=== PATIENT | male | born 1935 | race Caucasian/White ===

== ENCOUNTER → 2020-01-26 13:14 | Outpatient (BNVA) | payer MEDICARE, BC, SELFPAY | PROVIDERS: Family Provider Family Medicine; PCP Family Medicine; Visit Provider Urology | DX: N42.1 Congestion and hemorrhage of prostate (principal); N39.9 Disorder of urinary system, unspecified; N52.9 Male erectile dysfunction, unspecified | CPT/HCPCS: 81001 ==

== ENCOUNTER 2020-07-26 08:57 | Outpatient (CLI) | payer MEDICARE, BC, SELFPAY ==
[2020-07-26] MEDS: iohexol 300 mg/mL 50 mL Btl PO (10:00)
--- NOTE | 2020-07-26 10:30 | CT_ITS ---
WS: [id number] CT CHEST, ABDOMEN AND PELVIS WITH CONTRAST HISTORY: MALIGNANT NEOPLASM OF RECTUM TECHNIQUE: Contiguous 5 mm axial imaging performed through the chest, abdomen and pelvis with IV cont rast, oral contrast has been provided. Coronal and sagittal reformats chest. Coronal and sagittal ref ormats through the abdomen and pelvis. All CT scans at [facility] use at least one of the se dose optimization techniques: automated exposure control; mA and/or kV adjustment per patient size (includes targeted exams where dose is matched to clinical indication); or iterative reconstruction. CONTRAST: Visipaque 320; 95 mL IV. DLP: 2383.96 mGycm COMPARISON: 09/04/2018, 12/08/[address]: No interval change in a subcentimeter pulmonary nodules since 09/04/2018. There is been no increase in size or number. There are also benign granulomata. No metastatic disease. Subsegmental li near areas of scarring in the RIGHT middle, RIGHT lower lobe and LEFT lower lobes. No pleural effusio n. Mediastinal and hilar lymph nodes are stable. Some of these lymph nodes are calcified. Heart size is normal. No pericardial effusion. Mild atherosclerosis aorta. Normal size pulmonary artery. Abdomen CT: No metastatic disease to the liver. No hepatic nodules. Gallbladder and RIGHT adrenal gla nd are negative. Normal size RIGHT kidney. There are several small cysts from the upper pole with the largest measuring 5 mm. Nonobstructing central calcification measures 8 mm. The LEFT adrenal gland m ay have been surgically resection. The LEFT kidney has been resected. Pancreas is atrophic with no ma ss. Normal size spleen with granulomata. Small hiatal hernia. No metastatic disease within the abdome n. There is no free fluid or adenopathy. Mild atherosclerosis aorta. Heavy calcification at the origi n of the RIGHT renal artery. Prior appendectomy. Extensive sigmoid diverticulosis without acute diverticulitis. Postsurgical stinson es present at the rectum. No recurrent mass or perirectal adenopathy. There is presacral soft tissue thickening which is probably post therapy related. Pelvic CT: Minimally distended urinary bladder. Prostate gland is enlarged and lobulated but similar appearance to 2015. Small bilateral hydroceles. No osseous metastatic disease is identified. CT/CT chest abd pel w con* IMPRESSION: 1. No evidence for metastatic disease to the chest, abdomen or pelvis. 2. 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 3. Rectal anastomotic site is negative for recurrent mass. No adenopathy. 4. Mild presacral soft tissue thickening is probably post therapeutic. 5. Sigmoid diverticulosis. 6. Prior appendectomy. 7. Emphysema. 8. Nonobstructing central RIGHT renal calcification measures 8 mm. Patient is at risk for renal obstruction due to the position of the stone. 9. Heterogeneous mildly enlarged prostate gland.
[2020-07-26] MEDS: iodixanol 320 mg/mL 100mL Btl IV (10:53)
== END 2020-07-26 08:58 | disposition home or self-care (01) ==
LOC: RADWPI 09:03
PROVIDERS: Family Provider Family Medicine; PCP Family Medicine; Visit Provider Colon & Rectal Surgery
DX: C20 Malignant neoplasm of rectum (principal); K57.30 Diverticulosis of large intestine without perforation or abscess without bleeding; J43.9 Emphysema, unspecified; N20.0 Calculus of kidney; N40.0 Benign prostatic hyperplasia without lower urinary tract symptoms
CPT/HCPCS: 71260; 74177; Q9967

== ENCOUNTER → 2022-02-16 08:11 | Outpatient (BNVA) | payer MEDICARE, BC, SELFPAY | PROVIDERS: Family Provider Family Medicine; PCP Family Medicine; Referring Provider Dermatology; Visit Provider Surgery | DX: R10.32 Left lower quadrant pain (principal) | CPT/HCPCS: 99204 ==

== ENCOUNTER 2022-04-10 13:11 | Outpatient (CLI) | payer MEDICARE, BC, SELFPAY ==
--- NOTE | 2022-04-10 14:15 | US_ITS ---
WS: [id number] ULTRASOUND SOFT TISSUES LEFT inguinal region. HISTORY: Left Groin Pain COMPARISON: None available. TECHNIQUE: 2-D and color Doppler imaging is submitted. Ultrasound is directed to the LEFT inguinal region and area of pain. The iliac vein and artery are id entified and normal. No peristalsing loops of GI tract are noted. There is some increased fat along t he inguinal canal which may be related to an inguinal hernia containing fat only. No peristalsing loo ps of bowel. The bladder is negative. US/US soft tissue/extremity [id number] IMPRESSION: 1. No LEFT inguinal hernia or adenopathy identified. There is no protrusion of GI track into the inguinal canal. 2. Increased fat in the LEFT inguinal canal. This could represent omental fat.
== END 2022-04-10 13:12 | disposition home or self-care (01) ==
LOC: RAD 13:12
PROVIDERS: Family Provider Family Medicine; PCP Family Medicine; Visit Provider Surgery
DX: R10.30 Lower abdominal pain, unspecified (principal)
CPT/HCPCS: 76882

== ENCOUNTER → 2022-04-13 08:46 | Outpatient (BNVA) | payer MEDICARE, BC, SELFPAY | PROVIDERS: Family Provider Family Medicine; PCP Family Medicine; Visit Provider Surgery | DX: R10.32 Left lower quadrant pain (principal) | CPT/HCPCS: 99213 ==

== ENCOUNTER 2022-11-28 03:16 | Observation (INO) | payer MEDICARE, BC, SELFPAY ==
[2022-11-28] VITALS (11 sets, daily range): BP systolic 123–188; BP diastolic 70–119; PULSE 66–87; RESP 14–22; TEMP 36.3; O2SAT 91–96; BMI 26.9
--- NOTE | 2022-11-28 03:18 | ED_ITS ---
HPI - Chest Pain General: Chief Complaint: ER Hold Stated Complaint: Chest Pain Time Seen by Provider: 11/28/22 03:17 History of Present Illness: Mr. Nolan is an 87-year-old gentleman with history of diabetes, hyperlipidemia presenting to the emergency department due to chest pain. He reports onset of symptoms at approximately 7 PM on 11/27/2022. Symptom onset was at rest and he describes severe point pain in the middle of his chest with occasional radiation to right arm. No other associated symptoms. Denies frequent history of similar. Intensity of symptoms is currently m oderate. Course has been slightly variable. No other specific changes in health, exacerbating, or alleviating factors identified. Onset (ago): hour(s) Timing of current episode: constant Prior episodes: No Onset: during rest Pain location: substernal Pain radiation: right shoulder and right scapula Severity: moderate Quality: aching and heaviness Relieving factors: nothing Exacerbating factors: nothing Associated symptoms: Reports no associated symptoms Review of Systems General: Reports: 10 or more systems reviewed and unremarkable except in HPI and below PFSH ED PFSH: Medical History (Updated 11/28/22 @ 13:34 by Pedro Curiel MD) Erectile dysfunction History of chronic kidney disease History of hypertension History of non-insulin dependent type 2 diabetes mellitus Prostatic hemorrhage Surgical History History of colonoscopy History of nephrectomy, left History of tonsillectomy S/P appendectomy S/P colon resection S/P knee surgery S/P shoulder surgery S/P transurethral resection of prostate Status post left inguinal hernia repair Family History Mother , 80 No problems noted. Father , 65 CAD (coronary artery disease) Social History Smoking and tobacco status: never smoked Alcohol intake: never Marital status: Current occupational status: retired History of recent travel: Yes (freddie) Physical Exam Const: COMMON NORMALS: alert GENERAL APPEARANCE: cooperative and well developed HENMT: COMMON NORMALS: normocephalic and atraumatic HEAD & SCALP: normocephalic and atraumatic Eye: COMMON NORMALS: conjunctivae normal CONJUNCTIVA: Yes conjunctivae normal SCLERA: sclerae normal Neck/C-Spine: COMMON NORMALS: supple GENERAL: Yes trachea midline Resp: COMMON NORMALS: clear to auscultation bilaterally EFFORT & INSPECTION: Yes able to speak in complete sentences AUSCULTATION: clear to auscultation bilaterally Cardio: COMMON NORMALS: regular rate and regular rhythm RATE: regular rate RHYTHM: regular rhythm GI: COMMON NORMALS: Soft to palpation PALPATION: Yes Soft to palpation and No Tenderness to palpation present (GI) Extremity: GENERAL: Yes normal exam except as noted and No edema Neuro: COMMON NORMALS: moves all extremities SENSORIUM/ORIENTATION: Yes alert and No Orientation impaired Psych: COMMON NORMALS: mental status grossly normal and Normal thought process present THOUGHT PROCESS: Normal thought process present Course Vital Signs: Vital signs: Vital Signs Temperature 97.4 F L 11/28/22 03:22 Pulse Rate 87 11/28/22 09:19 Respiratory Rate 16 11/28/22 06:45 Blood Pressure 128/72 11/28/22 09:19 Pulse Oximetry 95 11/28/22 06:45 Oxygen Delivery In thod 11/28/22 06:55 MDM - Chest Pain Medical Decision Making 87-year-old gentleman presenting with chest pain. Exam as above. EKG shows sinus rhythm with nonspecific ST segment abnormalities, PVC present on initial. Labs notable for leukocytosis and hemoconcentration. Metabolic panel with mild evidence of dehydration, creatinine is elevated mildly. Transaminitis presence of uncertain etiology. Negative range 2-hour delta troponin. Chest x-ray with possible atelectasis, no lobar consolidation or pneumothorax. Patient given aspirin and nitroglycerin as well as Maalox. Most likely etiology of patient symptoms is chest pain, he is not low risk by heart score. The results of ED evaluation were discussed with the patient including possible disposition options. I discussed risk stratification by heart score and estimated risk of major adverse cardiac events. The patient wishes to proceed with in-hospital management. I discussed plan for admission due to requirement for level of care not available if discharged to prevent significant worsening/deterioration. Patient agreeable with plan. Discussed with hospitalist service who was agreeable to admit patient. Medical Records I reviewed the patient's medical records. Lab Data I reviewed the patient's lab results. 11/28/22 03:24 11/28/22 03:24 Radiology Impressions Chest X-Ray 11/28/22 03:23 IMPRESSION: Streaky lower lung opacities; favor atelectasis over pneumonia. Laboratory Results WBC 12.6 10^3/uL (4.0-10.0) H 11/28/22 03:24 RBC 5.62 10^6/uL (4.1-5.3) H 11/28/22 03:24 Hgb 16.8 g/dL (11.7-16.6) H 11/28/22 03:24 Hct 50.9 % (42.0-52.0) 11/28/22 03:24 MCV 90.6 fl (80-94) 11/28/22 03:24 MCH 29.9 pg (28.0-34.0) 11/28/22 03:24 MCHC 33.0 g/dL (30.0-36.0) 11/28/22 03:24 RDW 12.2 % (12.1-15.1) 11/28/22 03:24 Plt Count 253 10^3/cmm (130-400) 11/28/22 03:24 MPV 12.6 fL (7.4-10.4) H 11/28/22 03:24 Neut % (Auto) 63.9 % 11/28/22 03:24 Lymph % (Auto) 24.7 % 11/28/22 03:24 [place] % (Auto) 9.5 % 11/28/22 03:24 Eos % (Auto) 1.2 % 11/28/22 03:24 Baso % (Auto) 0.5 % 11/28/22 03:24 Neut # (Auto) 8.08 10^3/uL (1.8-7.7) H 11/28/22 03:24 Lymph # (Auto) 3.1 10^3/uL (0.8-4.8) 11/28/22 03:24 [place] # (Auto) 1.2 10^3/uL (0.2-0.9) H 11/28/22 03:24 Eos # (Auto) 0.2 10^3/uL (0.0-0.8) 11/28/22 03:24 Baso # (Auto) 0.1 10^3/uL (0.0-0.1) 11/28/22 03:24 Nucleated RBC % (auto) 0 % 11/28/22 03:24 Nucleated RBCs # 0.0 /100WBC 11/28/22 03:24 PT 13.30 SECONDS (12.1-14.9) 11/28/22 03:24 INR 0.98 (0.8-1.2) 11/28/22 03:24 APTT 28.2 SECONDS (23.9-36.7) 11/28/22 03:24 Sodium 132 mmol/L (136-145) L 11/28/22 03:24 Potassium 4.4 mmol/L (3.5-5.1) 11/28/22 03:24 Chloride 98 mmol/L (98-107) 11/28/22 03:24 Carbon Dioxide 22 mmol/L (22-29) 11/28/22 03:24 Anion Gap 16.4 (5-19) 11/28/22 03:24 BUN 27 mg/dL (8-23) H 11/28/22 03:24 Creatinine 1.3 mg/dL (0.7-1.2) H 11/28/22 03:24 GFR Calculation Not Reportable 11/28/22 03:24 Glucose 225 mg/dL (65-115) H 11/28/22 03:24 Calculated Osmolality 286 mOsm/kg (285-295) 11/28/22 03:24 Calcium 9.5 mg/dL (8.5-10.5) 11/28/22 03:24 Total Bilirubin 0.6 mg/dL (0.15-1.2) 11/28/22 03:24 AST 69 U/L (0-40) H 11/28/22 03:24 ALT 69 U/L (0-41) H 11/28/22 03:24 Alkaline Phosphatase 118 U/L (40-130) 11/28/22 03:24 Troponin T Baseline 21 ng/L (0-15) H 11/28/22 03:24 Troponin T 120 Minute 19.20 ng/L (0-15) H 11/28/22 05:01 Delta Troponin T -1.80 ABS# (0-10) L 11/28/22 05:01 NT-Pro-B Natriuret Pep 171 pg/mL (0-450) 11/28/22 03:24 Total Protein 8.0 g/dL (6.6-8.7) 11/28/22 03:24 Albumin 4.1 g/dL (3.5-5.2) 11/28/22 03:24 Globulin 3.9 g/dL (1.3-4.6) 11/28/22 03:24 SARS-CoV-2 Ag (Rapid) negative (Negative) 11/28/22 03:27 Discharge Plan Discharge Patient Disposition: Home Clinical Impression: Chest pain Condition: Stable Discharge Orders: Discharge Order (Routine); Ordered 11/28/22 Ordered By: Pedro Curiel Coding Level of Care Code ED Manager Of Environmental Services for Chg Fwd Exam Comprehensive
--- NOTE | 2022-11-28 03:21 | ECG_ITS ---
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 Measurements Intervals [place] Rate: 81 P: 89 HI: 185 QRS: 20 QRSD: 99 T: 68 QT: 350 QTc: 408 Interpretive Statements SINUS RHYTHM WITH OCCASIONAL VENTRICULAR PREMATURE COMPLEXES NONSPECIFIC T-WAVE ABNORMALITY No previous ECG available for comparison Electronically Signed On 11-28-2022 21:41:18 TICKET SORTER by Vasile Ritter M.D. [id number] f
--- NOTE | 2022-11-28 03:23 | XRR_ITS ---
PROCEDURE INFORMATION: Exam: XR Chest Exam date and time: 11/28/2022 3:29 AM Age: 87 years old Clinical indication: Sternal or substernal pain; Patient HX: C/O substernal chest pain; Additional info: Cp TECHNIQUE: Imaging protocol: Radiologic exam of the chest. Views: 1 view. COMPARISON: CT chest abd pel w con* 07/26/2020 10:49 AM FINDINGS: Lungs: Low lung volumes. Increased streaky lower lung bronchovascular markings. No definite consolidation. Pleural spaces: Unremarkable. No pleural effusion. No pneumothorax. Heart/Mediastinum: Mild cardiac enlargement. Bones/joints: Unremarkable. XR/XR chest 1V portable [id number] IMPRESSION: Streaky lower lung opacities; favor atelectasis over pneumonia.
[2022-11-28] MEDS: aspirin 81 mg Chew Tablet 324 MG PO (03:27)
[2022-11-28 03:31] LABS: Basophils # 0.1 10^3/uL (0.0-0.1); Basophils % 0.5 %; Eosinophils # 0.2 10^3/uL (0.0-0.8); Eosinophils % 1.2 %; Hematocrit 50.9 % (42.0-52.0); Hemoglobin 16.8 g/dL (11.7-16.6); Lymphocytes # 3.1 10^3/uL (0.8-4.8); Lymphocytes % 24.7 %; Mean Corpuscular Hemoglobin 29.9 pg (28.0-34.0); Mean Corpuscular Volume 90.6 fl (80-94); Mean Platelet Volume 12.6 fL (7.4-10.4); Monocytes # 1.2 10^3/uL (0.2-0.9); Monocytes % 9.5 %; Neutrophils # 8.08 10^3/uL (1.8-7.7); Neutrophils % 63.9 %; Nucleated Red Blood Cells % 0 %; Platelet Count 253 10^3/cmm (130-400); Red Blood Count 5.62 10^6/uL (4.1-5.3); Red Cell Distribution Width 12.2 % (12.1-15.1); White Blood Count 12.6 10^3/uL (4.0-10.0)
[2022-11-28] MEDS: alum-mag-hydroxide-sime 30 mL UDC PO (03:39)
[2022-11-28 03:47] LABS: INR 0.98 (0.8-1.2)
[2022-11-28 03:48] LABS: Partial Thromboplastin Time 28.2 SECONDS (23.9-36.7)
[2022-11-28 03:49] LABS: SARS Covid-2 Antigen negative (Negative)
[2022-11-28 04:00] LABS: Troponin(5th) Baseline 21 ng/L (0-15)
[2022-11-28 04:04] LABS: Alanine Aminotransferase 69 U/L (0-41); Albumin Level 4.1 g/dL (3.5-5.2); Alkaline Phosphatase 118 U/L (40-130); Aspartate Amino Transferase 69 U/L (0-40); Blood Urea Nitrogen 27 mg/dL (8-23); Calcium 9.5 mg/dL (8.5-10.5); Carbon Dioxide 22 mmol/L (22-29); Chloride 98 mmol/L (98-107); Globulin 3.9 g/dL (1.3-4.6); Glucose 225 mg/dL (65-115); NT Pro B Type Natriuretic Pept 171 pg/mL (0-450); Osmolality Calculated 286 mOsm/kg (285-295); Sodium 132 mmol/L (136-145); Total Bilirubin 0.6 mg/dL (0.15-1.2)
[2022-11-28 04:06] LABS: Anion Gap 16.4 (5-19); Potassium 4.4 mmol/L (3.5-5.1)
[2022-11-28] MEDS: nitroglycerin 0.4 mg sublingual Tablet SUBLINGUAL ×2 (04:26→04:32)
--- NOTE | 2022-11-28 05:23 | ECG_ITS ---
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 Measurements Intervals [place] Rate: 70 P: 44 FL: 190 QRS: 23 QRSD: 92 T: 75 QT: 378 QTc: 409 Interpretive Statements SINUS RHYTHM NONSPECIFIC T-WAVE ABNORMALITY Compared to ECG 11/28/2022 03:21:26 Ventricular premature complex(es) no longer present T-wave abnormality still present Electronically Signed On 11-28-2022 21:45:39 CALENDER MACHINE OPERATOR HELPER by Vasile Ritter M.D. [id number]
--- NOTE | 2022-11-28 06:16 | USCV_ITS ---
Elvis Nolan Age: 87 Gender: M : 1935 Exam Date: 11/28/2022 07:14 Ordering Phys: Jordan Mtz MD Technologist: Michelle Multani [place] [facility] [place]: CHEST PAIN BP: 134 / 89 HR: 67 Rhythm: Sinus Technical Quality: Suboptimal MEASUREMENTS (Male / Female) Normal Values 2D ECHO LV Ejection Fraction MOD 2C 65.4 % LV Ejection Fraction 2C AL 66.7 % LA Diameter 2.7 cm LA Width 2.9 cm LA Height 5.1 cm RA Width 3.1 cm RA Height 5.7 cm Aorta at Sinotubular Diameter 3.1 cm M-MODE Aortic Annulus Diameter 2.7 cm LA Ao Ratio MM 1.0 MV E Point Septal Separation 0.8 cm DOPPLER AV Peak Velocity 198.7 cm/s LVOT Peak Velocity 83.0 cm/s MV Peak Velocity 82.0 cm/s MV Area PHT 3.1 cm squared Mitral E to A Ratio 0.7 MV E' Velocity 52.0 cm/s TR Peak Velocity 172.1 cm/s TR Peak Gradient 11.8 mmHg TR Mean Velocity 120.9 cm/s TR Mean Gradient 6.8 mmHg TR Velocity Time Integral 38.8 cm TV Peak E Velocity 41.0 cm/s Right Atrial Pressure 8.0 mmHg Pulmonary Artery Systolic Pressu 19.8 mmHg PV Peak Velocity 99.0 cm/s RV Acceleration Time 0.1 s RV Ejection Time 0.3 s RV AcT/ET 0.3 FINDINGS Left Ventricle Normal left ventricular size and systolic function, EF 70 %. Grade I/IV diastolic dysfunction (abnormal relaxation filling pattern), normal to mildly elevated filling pressures. Right Ventricle The right ventricle appears to be mildly dilated with slightly diminished ejection fraction Right Atrium Could not be well visualized Left Atrium Possibly of normal size Mitral Valve Gross abnormalities were noted Aortic Valve Aortic valve sclerosis. Tricuspid Valve Tricuspid valve not well visualized. Pulmonic Valve Pulmonic valve not well visualized. Pericardium No pericardial effusion. Aorta Normal aortic annulus size. IVC Inferior vena cava not visualized. CONCLUSIONS Normal left ventricular size and systolic function, EF 70 %. Grade I/IV diastolic dysfunction (abnormal relaxation filling pattern), normal to mildly elevated filling pressures. (Echo contrast - Optison was used to delineate the endocardium and to estimate the LV ejection fraction) No gross wall motion abnormalities Features of aortic valve sclerosis There is no pericardial effusion. Dr Vasile Ritter MD [facility] (Electronically Signed) Final Date: 28 November 2022 20:36 S
--- NOTE | 2022-11-28 06:17 | P.HP_ITS ---
Providers/Chief Complaint Primary Care Provider: Elvis Carrillo MD Chief Complaint: Chest Pain History of Present Illness Elvis Nolan is a 87 year old male with a past medical history of left nephrectomy, CKD, BPH, hypertension, noninsulin-dependent type 2 diabetes mellitus, hyperlipidemia, who presents [facility] for chest discomfort. Patient reports, yesterday evening around 6 or so he started noticed substernal chest discomfort, radiating to the right arm,, the intensity of the pain increased throughout the evening, no associated shortness of breath, no diaphoresis, no lightheadedness, dizziness, because his chest pain persisted he presented to the emergency room early in the morning. He does not that he was given 2 nitroglycerin in the emergency room which alleviated his chest pain currently he is chest pain-free. Review of Systems Const: Denies: fever(s) or chills Eyes: Denies: change in vision Card: Reports: chest pain; Denies: palpitations Resp: Denies: dyspnea GI: Denies: abdominal pain : Denies: flank pain or difficulty urinating Musc: Reports: back pain Neuro: Denies: headache(s) Psych: Denies: anxiety Endo: Denies: polyuria Medications/Allergies Home Medications Medication Instructions Recorded Confirmed Last Taken Type glimepiride 2 mg tablet 2 mg PO BID 01/26/20 04/13/22 Unknown History levothyroxine 50 mcg capsule 50 mcg PO DAILY 01/26/20 04/13/22 Unknown History lisinopril 5 mg tablet See Rx Instructions PO DAILY 01/26/20 04/13/22 Unknown History bxnekjqqjfbv-dbeltjjl-aubbpn tablet 1 tab PO DAILY 01/26/20 04/13/22 Unknown History psyllium husk 3.4 gram/5.4 gram 1 tbsp PO DAILY 01/26/20 04/13/22 Unknown History oral powder (Metamucil) simvastatin 40 mg tablet 40 mg PO DAILY 01/26/20 04/13/22 Unknown History finasteride 5 mg tablet 5 mg PO DAILY #90 tabs 11/30/20 04/13/22 Unknown Rx aspirin 81 mg tablet,delayed 81 mg PO DAILY 02/16/22 04/13/22 Unknown History release (Adult Low Dose Aspirin) insulin detemir U-100 100 unit/mL 40 unit SUBCUT DAILY 02/16/22 04/13/22 Unknown History (3 mL) subcutaneous pen (Levemir FlexTouch U-100 Insulin) Allergies Allergy/AdvReac Type Severity Reaction Status Date / Time hydromorphone [From Dilaudid] Allergy NA Verified 04/13/22 08:55 meperidine [From Demerol] Allergy NA Verified 04/13/22 08:55 metformin Allergy NA Verified 04/13/22 08:55 morphine Allergy NA Verified 04/13/22 08:55 PFSH Acute PFSH: Medical History (Updated 11/28/22 @ 06:27 by Jordan Mtz MD) Erectile dysfunction History of chronic kidney disease History of hypertension History of non-insulin dependent type 2 diabetes mellitus Prostatic hemorrhage Surgical History History of colonoscopy History of nephrectomy, left History of tonsillectomy S/P appendectomy S/P colon resection S/P knee surgery S/P shoulder surgery S/P transurethral resection of prostate Status post left inguinal hernia repair Family History Mother , 80 No problems noted. Father , 65 CAD (coronary artery disease) Social History Smoking and tobacco status: never smoked Alcohol intake: never Marital status: Current occupational status: retired History of recent travel: Yes (freddie) Vitals/I&O/Wt Last Vital Signs Temp 97.4 F L 11/28/22 03:22 Pulse 66 11/28/22 06:15 Resp 16 11/28/22 06:15 BP 129/78 11/28/22 06:15 Pulse Ox 96 11/28/22 06:15 O2 Del Method 11/28/22 03:22 Weight last 48 hrs Weight 92.533 kg Physical Exam Const: COMMON NORMALS: no acute distress and patient oriented x3 Eye: COMMON NORMALS: Equal, round and reactive pupils present and EOMs intact bilaterally Neck/C-Spine: COMMON NORMALS: full ROM and no lymphadenopathy Lymph: LYMPHATIC: no lymphadenopathy noted Resp: COMMON NORMALS: normal respiratory effort, No retractions, No use of accessory muscles and clear to auscultation bilaterally AUSCULTATION: clear to auscultation bilaterally Cardio: COMMON NORMALS: regular rate, regular rhythm, S1 normal heart sound present and S2 normal heart sound present RATE: regular rate RHYTHM: regular rhythm HEART SOUNDS: S1 normal heart sound present and S2 normal heart sound present GI: COMMON NORMALS: Normal to inspection, nondistended, normoactive bowel sounds present, Soft to palpation, non-tender and no bruits PALPATION: Yes Soft to palpation Extremity: COMMON NORMALS: no pedal edema Neuro: COMMON NORMALS: patient oriented x3, CN's II-XII intact bilaterally and moves all extremities Psych: COMMON NORMALS: mental status grossly normal Data 11/28/22 03:24 11/28/22 03:24 A&P Assessment and plan (1) Chest pain: (2) CKD (chronic kidney disease): (3) Transaminitis: Plan Chest pain -Symptomatology concerning for cardiac etiology -Risk factors include age, type 2 diabetes mellitus, hypertension, hyperlipidemia Plan -Do not have CSU bed, admit to [facility] with telemetry -Aspirin, Coreg, statin -Nitro as needed for chest pain -Serial EKGs, serial troponins, telemetry monitoring -Cardiac echo -Cardiac stress test tomorrow, n.p.o. midnight -Lantus 20 units every morning, low-dose sliding scale, A1c -CKD creatinine 1.3, hold lisinopril -Transaminitis, monitor LFTs -Full code -Lovenox for DVT prophylaxis Attestations Medical Necessity Statement*: Patient requires hospitalization, outpatient with observation, for chest pain Coding Level of Care Code Acute Driver'S Education Instructor for [facility] Fw Diagnoses Chest pain R07.9 CKD (chronic kidney disease) N18.9 Transaminitis R74.01
--- NOTE | 2022-11-28 06:37 | NMCV_ITS ---
NM sourav perf SPECT r/s* [id number] Elvis Nolan Age: 87 Gender: M : 1935 Exam Date: 11/28/2022 08:25 Ordering Phys: Jordan Mtz MD Technologist: STEPHEN Diallo Exam Location: [facility] Indications: CHEST PAIN STRESS TEST Please see separate stress test report in [facility] for full findings IMAGE PROTOCOL Rest/Stress 1 Lexiscan Day Radiopharmaceutical Dose (mCi) Administration Site Administered by Rest: Tc-99m 11.0 IV Slime Recinos, PUBLIC RELATIONS PLAYER Sestamibi Stress:Tc-99m 33.0 IV Slime Recinos, PUBLIC RELATIONS PLAYER Sestamibi Rest: 28-Nov-2022 60 Discovery 630 Stress: 28-Nov-2022 30 Discovery 630 0.4mg Lexiscan. Supine position only as patient was unable to lay prone. SPECT RESULTS Technical Quality: Excellent Raw Data Analysis: Normal Image Corrections: No attenuation or motion correction applied Summed Stress Score: 0 Summed Rest Score: 0 Summed Difference Score: 0 PERFUSION FINDINGS Fairly uniform myocardial tracer uptake. No significant perfusion abnormalities. FUNCTIONAL RESULTS (calculated via Gated SPECT) Stress Image LV EF (%): 83 Stress EDV (mL):65 TID: 1.17 Stress ESV (mL):11 FUNCTIONAL FINDINGS: Segmental wall motion analysis revealing no gross wall motion normal disease. The transient ischemic dilatation ratio slightly elevated IMPRESSIONS 1. Myocardial perfusion imaging revealing no significant perfusion normalities 2. Normal LV ejection fraction of 83%. 3. LV wall motion analysis revealing no gross wall motion abnormalities. 4. Normal LV volume The elevated transient ischemic dilatation ratio may suggest endocardial ischemia. However in the absence of any other abnormal objective findings, the positive predictive value is low. Dr Vasile Ritter MD [facility] (Electronically Signed) Final Date: 28 November 2022 13:13 S
--- NOTE | 2022-11-28 06:37 | ECG_ITS ---
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 Interpretive Statements NAME OF STUDY: LEXISCAN SESTAMIBI STRESS TEST INDICATION: Chest Pain, PROCEDURE: At the baseline, the EKG revealed sinus rhythm with normal ST Ts. The baseline heart was 76 bpm with a blood pressue of 136/78 mm of Hg Lexiscan was infused over a period of 20 seconds. A total of 0.4 milligrams of Lexiscan was infused. The stress phase was continued for a total of 5 minutes. Heart rate at the end of the stress phase was 92 bpm with a blood pressure 113/69 mm of Hg. The EKG at the peak infusion revealed no significant changes. Sestamibi was injected 20 seconds after the Lexiscan infusion. Heart rate at the end of the recovery phase was 85 bpm with a blood pressure of 128/72 mm of Hg. CONCLUSION: 1. No significant EKG changes with the LexiScan infusion 2. No LexiScan induced chest pain or cardiac arrhythmia 3. Normal blood pressure and heart rate response 4. Sestamibi/sestamibi perfusion scan pending; see separate report. Electronically Signed On 11-30-2022 11:47:20 DERRICK HAND by Vasile Ritter M.D. [email or web address]
[2022-11-28 07:18] LABS: Procalcitonin 0.09 ng/mL (0-0.5); Thyroid Stimulating Hormone 1.52 uIU/mL (0.27-4.20)
[2022-11-28 07:29] LABS: Chol HDL Ratio 3.51 mg/dL (1.0-5.00); Cholesterol 123 mg/dL (0-200); HDL Cholesterol 35 mg/dL (60-100); LDL Cholesterol Calculated 69 mg/dL (50-129); LDL HDL Ratio 1.97 RATIO (0.00-3.22); Triglycerides 97 mg/dL (0-150)
[2022-11-28] MEDS: pantoprazole 40 mg SDV IVP (07:39)
[2022-11-28] MEDS: carvedilol 3.125 mg Tablet PO (07:41)
[2022-11-28] MEDS: enoxaparin 40 mg/0.4 mL Syringe SUBCUT (07:42)
[2022-11-28] MEDS: perflutren protein-a microsphr 0.22 mg/mL SDV 3 mL IV (07:45)
[2022-11-28 08:54] LABS: Add Urine Microscopic? YES; Bilirubin Urine Neg (Negative); Blood Urine 3+ (Negative); Glucose Urine UA 1+ (Normal); Ketones Urine Negative (Negative); Leukocyte Esterase Urine Negative (Negative); Nitrate Urine Negative (Negative); Protein Urine 1+ (Negative); RBC Urine TOO NUMEROUS TO CNT /hpf (0-2); Squamous Epithelial Cell Urine 0-4 /hpf (0-5); Urine Appearance Bloody (CLEAR); Urine Color Brown (Yellow); Urobilinogen Urine Norm (Negative); WBC Urine 0-4 /hpf (0-5); pH Urine 5 (5-7)
[2022-11-28 08:55] LABS: Add Urine Culture? No; Bacteria Urine 1+ /hpf
[2022-11-28] MEDS: regadenoson 0.4 Mg/5 ml Syringe IVP (08:57)
[2022-11-28] MEDS: atorvastatin 40 mg Tablet 20 MG PO (10:12)
[2022-11-28] MEDS: finasteride 5 mg Tablet PO (10:12)
--- NOTE | 2022-11-28 11:09 | PM.DCS ---
Discharge Providers Date of Admission: 11/28/22 05:42 Date of Discharge: November 28, 2022 Attending Provider at Admission: Jordan Mtz MD Attending Provider at Discharge: Jordan Mtz MD Primary Care Provider: Elvis Carrillo MD Diagnoses at Discharge Discharge Diagnosis (1) Chest pain: Status: Acute (2) CKD (chronic kidney disease): Status: Acute (3) Transaminitis: Status: Acute Reason for Visit Reason for Visit: Chest Pain Hospital Course Hospital Course 87-year male who presented to the hospital with chief complaint of chest pain which relieved with nitroglycerin, EKG did not show any acute infarctive changes, stress test was requested by admitting physician, chest x-ray unremarkable, patient is hemodynamically stable chest pain-free.MPI did not suggest significant signs of coronary ischemia. Will add antianginal low dose coreg and pt wants to establish cardiology care with DR Hamlin. Previously has seen DR RODRIGUEZ. Physical Exam Narrative: Awake and alert Nonfocal neuro exam S1, S2 Hemodynamic stable Doing well on room air Discharge Data Studies Completed and Pending Completed Studies During Hospitalization Category Date Time Status Sestamibi Stress Test Request Routine Exams 11/28/22 06:37 Draft XR chest 1V portable [id number] Stat Exams 11/28/22 03:23 Completed Pending at discharge Category Date Time Status Blood Culture Stat Lab 11/28/22 06:36 Results MRSA by PCR Stat Lab 11/28/22 06:36 Received Troponin(5th) 6 hour. Timed Lab 11/28/22 09:23 Ordered NM sourav perf SPECT r/s* [id number] Routine Nuc Med 11/28/22 06:37 Taken CV. echo wo/w contrast [id number] Stat Ultrasound 11/28/22 06:16 Taken Radiology Impressions Chest X-Ray 11/28/22 03:23 IMPRESSION: Streaky lower lung opacities; favor atelectasis over pneumonia. Laboratory Results WBC 12.6 10^3/uL (4.0-10.0) H 11/28/22 03:24 RBC 5.62 10^6/uL (4.1-5.3) H 11/28/22 03:24 Hgb 16.8 g/dL (11.7-16.6) H 11/28/22 03:24 Hct 50.9 % (42.0-52.0) 11/28/22 03:24 MCV 90.6 fl (80-94) 11/28/22 03:24 MCH 29.9 pg (28.0-34.0) 11/28/22 03:24 MCHC 33.0 g/dL (30.0-36.0) 11/28/22 03:24 RDW 12.2 % (12.1-15.1) 11/28/22 03:24 Plt Count 253 10^3/cmm (130-400) 11/28/22 03:24 MPV 12.6 fL (7.4-10.4) H 11/28/22 03:24 Neut % (Auto) 63.9 % 11/28/22 03:24 Lymph % (Auto) 24.7 % 11/28/22 03:24 Delta % (Auto) 9.5 % 11/28/22 03:24 Eos % (Auto) 1.2 % 11/28/22 03:24 Baso % (Auto) 0.5 % 11/28/22 03:24 Neut # (Auto) 8.08 10^3/uL (1.8-7.7) H 11/28/22 03:24 Lymph # (Auto) 3.1 10^3/uL (0.8-4.8) 11/28/22 03:24 Delta # (Auto) 1.2 10^3/uL (0.2-0.9) H 11/28/22 03:24 Eos # (Auto) 0.2 10^3/uL (0.0-0.8) 11/28/22 03:24 Baso # (Auto) 0.1 10^3/uL (0.0-0.1) 11/28/22 03:24 Nucleated RBC % (auto) 0 % 11/28/22 03:24 Nucleated RBCs # 0.0 /100WBC 11/28/22 03:24 PT 13.30 SECONDS (12.1-14.9) 11/28/22 03:24 INR 0.98 (0.8-1.2) 11/28/22 03:24 APTT 28.2 SECONDS (23.9-36.7) 11/28/22 03:24 Sodium 132 mmol/L (136-145) L 11/28/22 03:24 Potassium 4.4 mmol/L (3.5-5.1) 11/28/22 03:24 Chloride 98 mmol/L (98-107) 11/28/22 03:24 Carbon Dioxide 22 mmol/L (22-29) 11/28/22 03:24 Anion Gap 16.4 (5-19) 11/28/22 03:24 BUN 27 mg/dL (8-23) H 11/28/22 03:24 Creatinine 1.3 mg/dL (0.7-1.2) H 11/28/22 03:24 GFR Calculation Not Reportable 11/28/22 03:24 Glucose 225 mg/dL (65-115) H 11/28/22 03:24 Calculated Osmolality 286 mOsm/kg (285-295) 11/28/22 03:24 Calcium 9.5 mg/dL (8.5-10.5) 11/28/22 03:24 Total Bilirubin 0.6 mg/dL (0.15-1.2) 11/28/22 03:24 AST 69 U/L (0-40) H 11/28/22 03:24 ALT 69 U/L (0-41) H 11/28/22 03:24 Alkaline Phosphatase 118 U/L (40-130) 11/28/22 03:24 Troponin T Baseline 21 ng/L (0-15) H 11/28/22 03:24 Troponin T 120 Minute 19.20 ng/L (0-15) H 11/28/22 05:01 Delta Troponin T -1.80 ABS# (0-10) L 11/28/22 05:01 C-Reactive Protein 9.0 mg/L (0.0-4.9) H 11/28/22 06:36 NT-Pro-B Natriuret Pep 171 pg/mL (0-450) 11/28/22 03:24 Total Protein 8.0 g/dL (6.6-8.7) 11/28/22 03:24 Albumin 4.1 g/dL (3.5-5.2) 11/28/22 03:24 Globulin 3.9 g/dL (1.3-4.6) 11/28/22 03:24 Triglycerides 97 mg/dL (0-150) 11/28/22 06:36 Cholesterol 123 mg/dL (0-200) 11/28/22 06:36 LDL Cholesterol, Calc 69 mg/dL (50-129) 11/28/22 06:36 HDL Cholesterol 35 mg/dL (60-100) L 11/28/22 06:36 LDL/HDL Ratio 1.97 RATIO (0.00-3.22) 11/28/22 06:36 Cholesterol/HDL Ratio 3.51 mg/dL (1.0-5.00) 11/28/22 06:36 Procalcitonin 0.09 ng/mL (0-0.5) 11/28/22 06:36 TSH 1.52 uIU/mL (0.27-4.20) 11/28/22 06:36 Urine Color Brown (Yellow) 11/28/22 08:23 Urine Appearance Bloody (CLEAR) A 11/28/22 08:23 Urine pH 5 (5-7) 11/28/22 08:23 Ur Specific [place] 1.020 (1.005-1.030) 11/28/22 08:23 Urine Protein 1+ (Negative) H 11/28/22 08:23 Urine Glucose (UA) 1+ (Normal) H 11/28/22 08:23 Urine Ketones Negative (Negative) 11/28/22 08:23 Urine Blood 3+ (Negative) H 11/28/22 08:23 Urine Nitrate Negative (Negative) 11/28/22 08:23 Urine Bilirubin Neg (Negative) 11/28/22 08:23 Urine Urobilinogen Norm mg/dL (Negative) 11/28/22 08:23 Ur Leukocyte Esterase Negative (Negative) 11/28/22 08:23 Urine RBC Too numerous to cnt /hpf (0-2) H 11/28/22 08:23 Urine WBC 0-4 /hpf (0-5) H 11/28/22 08:23 Ur Squamous Epith Cells 0-4 /hpf (0-5) H 11/28/22 08:23 Amorphous Sediment Not Reportable 11/28/22 08:23 Urine Bacteria 1+ /hpf (NONE) H 11/28/22 08:23 SARS-CoV-2 Ag (Rapid) negative (Negative) 11/28/22 03:27 Vitals Last Vital Signs Temp 97.4 F L 11/28/22 03:22 Pulse 87 11/28/22 09:19 Resp 16 11/28/22 06:45 BP 128/72 11/28/22 09:19 Pulse Ox 95 11/28/22 06:45 O2 Del Method 11/28/22 06:55 Discharge Plan Discharge Patient Disposition: Home Condition: Stable Prescriptions: New carvedilol [Coreg] 3.125 mg tablet 3.125 mg PO BID Qty: 60 2RF Rx Instructions: must administer with a meal/food Continued Metamucil 3.4 gram/5.4 gram powder 1 tbsp PO DAILY simvastatin 40 mg tablet 40 mg PO DAILY levothyroxine 50 mcg capsule 75 mcg PO DAILY [id number] Tablet 1 tab PO DAILY aspirin [Adult Low Dose Aspirin] 81 mg tablet,delayed release (DR/EC) 81 mg PO DAILY Levemir FlexTouch U-100 Insuln 100 unit/mL (3 mL) insulin pen 60 unit SUBCUT BEDTIME finasteride 5 mg tablet 5 mg PO DAILY Qty: 90 3RF glimepiride 4 mg tablet 4 mg PO BID Held lisinopril 5 mg tablet 5 mg PO BID Hold Instructions: Resume on 11/30/22. Discharge Orders: Discharge Order (Routine); Ordered 11/28/22 Ordered By: Pedro Curiel Referrals: Domingo Hamlin M.D [Physician] - 2 weeks Elvis Carrillo MD [Primary Care Provider] - 1-3 days Patient Instructions: Opioid Safety Discharge Attestations Time Spent in Discharge Care*: less than 30 min Quality Metrics Clinical Quality Measures [ No reported AMI, CVA or VTE this stay] Coding Level of Care Code Acute Chg [facility] note Diagnoses Chest pain R07.9 CKD (chronic kidney disease) N18.9 Transaminitis R74.01
[2022-11-28 11:32] LABS: Troponin 5 6HR 19.07 ng/L (0-15)
[2022-11-28 11:33] LABS: Troponin 5 6HR Delta -1.93 ng/L (0-12)
== END 2022-11-29 14:14 | disposition home or self-care (01) ==
LOC: ER 05:40 → ER IP 10:08
PROVIDERS: Admitting Provider Family Medicine; Emergency Provider Emergency Medicine; PCP Family Medicine; Visit Provider Internal Medicine
DX: R07.89 Other chest pain (principal); R74.01 Elevation of levels of liver transaminase levels; R31.9 Hematuria, unspecified; E11.22 Type 2 diabetes mellitus with diabetic chronic kidney disease; I12.9 Hypertensive chronic kidney disease with stage 1 through stage 4 chronic kidney disease, or unspecified chronic kidney disease; N18.9 Chronic kidney disease, unspecified; Z90.5 Acquired absence of kidney; N40.1 Benign prostatic hyperplasia with lower urinary tract symptoms; E78.5 Hyperlipidemia, unspecified; Z82.49 Family history of ischemic heart disease and other diseases of the circulatory system
CPT/HCPCS: 36415; 71045; 78452; 80053; 80061; 81001; 83880; 84145; 84443; 84484; 85025; 85610; 85730; 86140; 87040; 87426; 87641; 93005; 93017; 96361; 96372; 96374; 96375; 99285; A9500; C8929; C9113; G0378; J1650; J2785; Q9956

== ENCOUNTER 2022-12-05 12:50 | Outpatient (CLI) | payer MEDICARE, BC, SELFPAY ==
[2022-12-05 14:35] LABS: Anion Gap 18.2 (5-19); Blood Urea Nitrogen 31 mg/dL (8-23); Calcium 9.1 mg/dL (8.5-10.5); Carbon Dioxide 22 mmol/L (22-29); Chloride 98 mmol/L (98-107); Glucose 392 mg/dL (65-115); Osmolality Calculated 299 mOsm/kg (285-295); Potassium 5.2 mmol/L (3.5-5.1); Sodium 133 mmol/L (136-145)
[2022-12-05 14:41] LABS: Add Urine Microscopic? YES; Bilirubin Urine Neg (Negative); Blood Urine Neg (Negative); Glucose Urine UA 4+ (Normal); Ketones Urine Negative (Negative); Leukocyte Esterase Urine 2+ (Negative); Nitrate Urine Negative (Negative); Protein Urine Neg (Negative); Urine Appearance Hazy (CLEAR); Urine Color Yellow (Yellow); Urobilinogen Urine Neg (Negative); pH Urine 5 (5-7)
[2022-12-05 14:43] LABS: RBC Urine RARE /hpf (0-2); Squamous Epithelial Cell Urine RARE /hpf (0-5); WBC Urine 25-40 /hpf (0-5)
[2022-12-05 14:46] LABS: Add Urine Culture? No
== END 2022-12-05 12:51 | disposition home or self-care (01) ==
LOC: LAB 12:51
PROVIDERS: PCP Family Medicine; Visit Provider Internal Medicine
DX: N18.9 Chronic kidney disease, unspecified (principal); R31.9 Hematuria, unspecified
CPT/HCPCS: 80048; 81001

== ENCOUNTER → 2023-02-04 12:06 | Outpatient (BNVA) | payer MEDICARE, BC, SELFPAY | PROVIDERS: PCP Nurse Practitioner Family; Visit Provider Internal Medicine | DX: I12.9 Hypertensive chronic kidney disease with stage 1 through stage 4 chronic kidney disease, or unspecified chronic kidney disease (principal); E11.22 Type 2 diabetes mellitus with diabetic chronic kidney disease; N18.9 Chronic kidney disease, unspecified; Z79.4 Long term (current) use of insulin; Z87.898 Personal history of other specified conditions | CPT/HCPCS: 93005; 99204 ==

== ENCOUNTER → 2024-02-03 12:32 | Outpatient (BNVA) | payer MEDICARE, BC, SELFPAY | PROVIDERS: PCP Nurse Practitioner Family; Visit Provider Internal Medicine | DX: I12.9 Hypertensive chronic kidney disease with stage 1 through stage 4 chronic kidney disease, or unspecified chronic kidney disease (principal); E11.22 Type 2 diabetes mellitus with diabetic chronic kidney disease; N18.9 Chronic kidney disease, unspecified; Z79.4 Long term (current) use of insulin; R06.09 Other forms of dyspnea | CPT/HCPCS: 99213 ==